=== PATIENT | male | born 1965 | race Caucasian/White ===

== ENCOUNTER 2017-05-09 22:27 | Emergency (ER) | payer BC ==
[~2017-05-09] VITALS: Ht 193 cm; Wt 102.1 kg
--- NOTE | 2017-05-09 22:40 | NUR ---
PT AMBULATORY TO ER BED 15. PRESENTS W/ PENILE ERECTION/PAIN FOR HOURS S/P TAKING PILL FOR ERECTILE DYSFUNCTION. STABLE VITALS. NAD NOTED. AWAITING MD CARLISLE.
--- NOTE | 2017-05-09 22:50 | NUR ---
DR ABERNATHY AT BEDSIDE FOR EVAL.
[2017-05-09] MEDS ORDERED: EPINEPHRINE (1:10,000) SYRINGE 1 MG/10 ML DISP.SYRIN ONE (22:56)
--- NOTE | 2017-05-09 23:55 | NUR ---
RECEIVED REPORT FROM HETAL WEBSTER FOR DEIRDRE
--- NOTE | 2017-05-10 00:02 | NUR ---
Patient eloped from facility. ER MD notified.
[2017-05-10 00:03] VITALS: BP 144/78
== END 2017-05-10 00:05 | disposition left against medical advice (07) ==
LOC: ER 22:30
DX: N48.30 Priapism, unspecified (principal); N52.9 Male erectile dysfunction, unspecified
CPT/HCPCS: A4606; J0171; Z7610